=== PATIENT | male | born 1945 | race Caucasian/White ===

== ENCOUNTER 2017-02-28 14:24 | Emergency (ER) | payer MEDICARE, BC ==
[~2017-02-28] VITALS: Ht 177.8 cm; Wt 56.7 kg
[~2017-02-28 14:24] MED LIST: ACET325T53 PO; ASPI81TA31 PO; COMPOUND PAIN CREAM TP; DICL100G16 TP; DIVA250T4 PO; DULO30CA2 PO; LIDO700A TP; LOPE2CAP40 PO; MELO-107 PO; METO-302 PO; OLAN10TA3 PO; OLAN2.5T3 PO; SUVO10TA PO; TRAM50TA2 PO
[2017-02-28] MEDS ORDERED: predniSONE 20 MG TABLET PO ONE (15:00)
[2017-02-28] MEDS ORDERED: diphenhydrAMINE 50 MG CAPSULE PO ONE (15:00)
[2017-02-28] MEDS ORDERED: ASPI81TA31 PO (15:03)
[2017-02-28] MEDS ORDERED: CHOL500062 PO (15:03)
[2017-02-28] MEDS ORDERED: SYNTHROID 88 MCG TABLET PO (15:03)
[2017-02-28] MEDS ORDERED: [UNRECOGNIZED DRUG - REMARK] (15:03)
[2017-02-28] MEDS ORDERED: DULO60CA45 PO (15:03)
[2017-02-28] MEDS ORDERED: IV NORMAL SALINE 500 ML IV ONE (15:15)
[2017-02-28] MEDS ORDERED: predniSONE 20 MG TABLET ONE (15:22)
[2017-02-28] MEDS ORDERED: diphenhydrAMINE 50 MG CAPSULE ONE (15:23)
--- NOTE | 2017-02-28 16:13 | NUR ---
Patient is resting comfortably on gurney, calm and cooperative at this time.
--- NOTE | 2017-02-28 16:33 | NUR ---
Patient discharged to home in stable conditon. Written and verbal after care instructions given to patient and his conservator. Patient's conservator verbalizes understanding of instructions. Patient left ER with brisk steady gait.
== END 2017-02-28 16:38 | disposition home or self-care (01) ==
LOC: ER 14:24
DX: K08.89 Other specified disorders of teeth and supporting structures (principal); T36.0X5A Adverse effect of penicillins, initial encounter; F03.90 Unspecified dementia, unspecified severity, without behavioral disturbance, psychotic disturbance, mood disturbance, and anxiety; I10 Essential (primary) hypertension; I21.9 Acute myocardial infarction, unspecified; F31.9 Bipolar disorder, unspecified; F41.9 Anxiety disorder, unspecified; Z88.1 Allergy status to other antibiotic agents; F17.210 Nicotine dependence, cigarettes, uncomplicated; Z79.82 Long term (current) use of aspirin; Y92.098 Other place in other non-institutional residence as the place of occurrence of the external cause
CPT/HCPCS: A4663; J7040; J7512; Q0163

== ENCOUNTER 2020-06-04 20:52 | Inpatient (IN) | payer MEDICARE, BC ==
[~2020-06-04] VITALS: Ht 177.8 cm; Wt 65.0 kg
[2020-06-04 20:30] VITALS: BP 103/73
[~2020-06-04 20:52] MED LIST changes: -ACET325T53 PO; +CHOL500062 PO; -COMPOUND PAIN CREAM TP; -DICL100G16 TP; -DULO30CA2 PO; +DULO60CA45 PO; -LIDO700A TP; -LOPE2CAP40 PO; -METO-302 PO; -SUVO10TA PO; +SYNTHROID 88 MCG TABLET PO; -TRAM50TA2 PO; +[UNRECOGNIZED DRUG - REMARK]
[2020-06-04] MEDS ORDERED: ALBU18HF2 INH (21:47)
[2020-06-04] MEDS ORDERED: PANT40TA2 PO (21:47)
[2020-06-04] MEDS ORDERED: ENOX40DI SQ (21:47)
[2020-06-04] MEDS ORDERED: MIRT15TA3 PO (21:47)
[2020-06-04] MEDS ORDERED: GABA600T12 PO (21:47)
[2020-06-04] MEDS ORDERED: QUET100T PO (21:47)
[2020-06-04] MEDS ORDERED: DIVA-78 PO (21:47)
[2020-06-04] MEDS ORDERED: LACT1CAP57 PO (21:47)
[2020-06-04] MEDS ORDERED: GABA100C PO (21:47)
[2020-06-04] MEDS ORDERED: ACET325C7 PO (21:47)
[2020-06-04] MEDS ORDERED: LEVO75TA PO (21:47)
[2020-06-04] MEDS ORDERED: DULO60CA45 PO (21:47)
[2020-06-04] MEDS ORDERED: CYCL7.5T17 PO (21:47)
[2020-06-04] MEDS ORDERED: TRAZ150T75 PO (21:47)
[2020-06-04] MEDS ORDERED: ATOR20TA PO (21:47)
[2020-06-04] MEDS ORDERED: Z GUARD REMEDY PASTE 57 GM TUBE TOP PRN (22:00)
--- NOTE | 2020-06-04 22:00 | NUR ---
Admitted this 74y/o male from [facility] with diagnosis of PNA, acute hypoxic. Axox 2, clear speech able to make needs known. no acute distress noted. on 2L NC saturating @97%, no SOB noted. VSS. No complain of any pain or discomfort. Noted with left arm bruise, right hand bruising, lower left abdominal bruising and bilateral heel redness. Pictures take and placed in chart. Belongings list completed and placed in chart. Oriented pt to the unit, safety measure maintained, bed alarm on, bed locked and lowered, x2 rails. Assisted with needs promptly. Call light and frequently used items placed within patient's reach. Routine admission care done. Dr. Kristian Barrow and Dr. Fisher made aware of the admission. Will continue to monitor and will endorse accordingly.
[2020-06-04] MEDS ORDERED: CYCLOBENZAPRINE HCL 10 MG TABLET PO PRN (22:15)
[2020-06-04] MEDS ORDERED: TRAZODONE 100 MG TABLET PO PRN (22:15)
[2020-06-05 04:00] VITALS: BP 118/65
[2020-06-05] MEDS: LEVOTHYROXINE SODIUM 75 MCG TABLET PO SCH (06:15)
--- NOTE | 2020-06-05 06:50 | NUR ---
No significant events throughout the night. pt slept well. Needs attended too. Condom cath in place, draining clear yellow. Safety measures maintained, bed alarm on. Call light and all personal items within reach. Will endorse to oncoming nurse.
[2020-06-05] MEDS: ASPIRIN 81 MG TAB.CHEW PO SCH (09:20)
[2020-06-05] MEDS: DULOXETINE 60 MG CAPSULE.DR PO SCH (09:20)
[2020-06-05] MEDS: PANTOPRAZOLE SODIUM 40 MG TABLET.DR PO SCH (09:20)
[2020-06-05] MEDS: CULTURELLE CAPSULE PO SCH ×2 (09:20→17:05)
[2020-06-05] MEDS: MIRTAZAPINE 15 MG TABLET PO SCH (09:23)
[2020-06-05] MEDS: DIVALPROEX 500 MG TABLET.DR PO SCH ×3 (09:24→17:05)
[2020-06-05] MEDS: GABAPENTIN 300 MG CAPSULE PO SCH ×3 (09:24→17:05)
[2020-06-05] MEDS: QUETIAPINE FUMARATE 100 MG TABLET PO SCH ×4 (09:24→22:50)
[2020-06-05 09:37] VITALS: BP 155/90
[2020-06-05] MEDS: ENOXAPARIN SODIUM 40 MG/0.4 ML DISP.SYRIN SQ SCH (09:58)
[2020-06-05] MEDS ORDERED: TRAZODONE 100 MG TABLET PO PRN (14:15)
[2020-06-05] MEDS: ALBUTEROL SULFATE 2.5 MG/3 ML NEBU NEB SCH ×2 (14:26→19:27)
[2020-06-05 15:30] VITALS: BP 119/83
--- NOTE | 2020-06-05 16:24 | NUR ---
[facility] Note: SW spoke with the pts guardian, Connie ([phone]), and received collateral information regarding the pt. SW provided patient with the following caregiving resources: [facility]; ([phone]), [facility]; ([phone]), [facility]; ([phone]). group care worker will continue to remain available to patient and provide ongoing supportive counseling and assess for any psychosocial needs. group care worker will encourage patient to comply with ARU goals of care.
--- NOTE | 2020-06-05 19:30 | NUR ---
RECEIVED PT IN NO ACUTE DISTRESS. IV INTACT. PT ON NASAL CANNULA. SAFETY AND COMFORT PROVIDED. WILL CONTINUE TO MONITOR. Addendum: 06/06/20 at 0416 by CHARMAINE LEIJA RN WRONG PT.
--- NOTE | 2020-06-05 19:30 | NUR ---
RECEIVED PT IN NO ACUTE DISTRESS. PT ON NASAL CANNULA. PT ON CONDOM CATHETER INTACT AND DRAINING WELL.SAFETY AND COMFORT PROVIDED. WILL CONTINUE TO MONITOR.
[2020-06-05 20:00] VITALS: BP 101/68
[2020-06-05] MEDS: ATORVASTATIN 20 MG TABLET PO SCH (22:49)
[2020-06-06] MEDS: ALBUTEROL SULFATE 2.5 MG/3 ML NEBU NEB SCH ×4 (00:31→19:09)
[2020-06-06 04:00] VITALS: BP 119/83
--- NOTE | 2020-06-06 06:15 | NUR ---
PT SLEPT INTERMITTENTLY. PT IN NO ACUTE DISTRESS. PT CONDOM CATH INTACT AND DRAINING WELL. PT VITAL SIGNS WNL. PRESCRIBED MEDICATION GIVEN AND PT TOLERATED IT WELL. SAFETY AND COMFORT PROVIDED. ALL NEEDS ARE MET. WILL ENDORSE TO INCOMING NURSE FOR CONTINUITY OF CARE.
[2020-06-06] MEDS: LEVOTHYROXINE SODIUM 75 MCG TABLET PO SCH (06:31)
[2020-06-06 08:00] VITALS: BP 139/83
[2020-06-06] MEDS: ASPIRIN 81 MG TAB.CHEW PO SCH (08:50)
[2020-06-06] MEDS: CULTURELLE CAPSULE PO SCH ×2 (08:50→16:56)
[2020-06-06] MEDS: DULOXETINE 60 MG CAPSULE.DR PO SCH (08:51)
[2020-06-06] MEDS: DIVALPROEX 500 MG TABLET.DR PO SCH ×3 (08:51→16:54)
[2020-06-06] MEDS: PANTOPRAZOLE SODIUM 40 MG TABLET.DR PO SCH (08:52)
[2020-06-06] MEDS: QUETIAPINE FUMARATE 100 MG TABLET PO SCH ×4 (08:53→20:26)
[2020-06-06] MEDS: GABAPENTIN 300 MG CAPSULE PO SCH ×3 (08:57→16:56)
[2020-06-06] MEDS: MIRTAZAPINE 15 MG TABLET PO SCH (08:57)
[2020-06-06] MEDS: ENOXAPARIN SODIUM 40 MG/0.4 ML DISP.SYRIN SQ SCH (08:58)
[2020-06-06 15:23] VITALS: BP 133/90
[2020-06-06] MEDS: ENSURE ENLIVE (VAN) 240 ML LIQUID PO SCH (17:52)
--- NOTE | 2020-06-06 18:30 | NUR ---
Patient remains alert, oriented x 2, not in any form of distress on 2LPM via nasal cannula. He denies any pain or discomfort on room air. Condom catheter in place draining clear yellow urine. Needs attended to promptly. Call light and frequently used items placed within patient's reach. Safety measures maintained. Will endorse accordingly.
[2020-06-06 20:00] VITALS: BP 108/66
[2020-06-06] MEDS: ATORVASTATIN 20 MG TABLET PO SCH (20:26)
--- NOTE | 2020-06-06 23:54 | NUR ---
Awake alert and oriented x2-3 needs attended. VSS. Tolerated po meds well. No acute distress noted. Will monitor patient.On continous O2@ 2L via nasal cannula pulse ox 97% Kept comfortable.
[2020-06-07] MEDS: ALBUTEROL SULFATE 2.5 MG/3 ML NEBU NEB SCH ×4 (00:36→19:30)
[2020-06-07 04:00] VITALS: BP 112/63
[2020-06-07] MEDS: LEVOTHYROXINE SODIUM 75 MCG TABLET PO SCH (06:44)
[2020-06-07] MEDS: PANTOPRAZOLE SODIUM 40 MG TABLET.DR PO SCH (08:12)
[2020-06-07] MEDS: DIVALPROEX 500 MG TABLET.DR PO SCH ×3 (08:12→16:01)
[2020-06-07] MEDS: QUETIAPINE FUMARATE 100 MG TABLET PO SCH ×4 (08:12→20:48)
[2020-06-07] MEDS: CULTURELLE CAPSULE PO SCH ×2 (08:12→16:01)
[2020-06-07] MEDS: MIRTAZAPINE 15 MG TABLET PO SCH (08:12)
[2020-06-07] MEDS: ASPIRIN 81 MG TAB.CHEW PO SCH (08:12)
[2020-06-07] MEDS: GABAPENTIN 300 MG CAPSULE PO SCH ×3 (08:12→16:01)
[2020-06-07] MEDS: DULOXETINE 60 MG CAPSULE.DR PO SCH (08:12)
[2020-06-07] MEDS: ENOXAPARIN SODIUM 40 MG/0.4 ML DISP.SYRIN SQ SCH (08:13)
[2020-06-07] MEDS: ENSURE ENLIVE (VAN) 240 ML LIQUID PO SCH ×2 (08:13→16:02)
[2020-06-07 08:40] VITALS: BP 106/70
--- NOTE | 2020-06-07 13:49 | NUR ---
INDIVIDUALIZED PLAN OF CARE
--- NOTE | 2020-06-07 14:44 | NUR ---
INTERDISCIPLINARY TEAM CONFERENCE
[2020-06-07 15:13] VITALS: BP 104/62
[2020-06-07 20:31] VITALS: BP 105/62
[2020-06-07] MEDS: ATORVASTATIN 20 MG TABLET PO SCH (20:48)
--- NOTE | 2020-06-07 22:00 | NUR ---
received lying in bed watching TV. No acute distress noted, no SOB noted on 2L NC saturating @ 97%. Denies any pain or discomfort. VSS. All due medication administered and tolerated well. Pt is calm and cooperative, makes needs known. All needs attended too. Condom cath intact and draining ernesto yellow. Safety measure maintained. Will continue to monitor through the night..
[2020-06-08] MEDS: ALBUTEROL SULFATE 2.5 MG/3 ML NEBU NEB SCH ×4 (02:20→19:52)
[2020-06-08 04:00] VITALS: BP 101/52
[2020-06-08] MEDS: LEVOTHYROXINE SODIUM 75 MCG TABLET PO SCH (06:42)
--- NOTE | 2020-06-08 07:00 | NUR ---
received in bed sleeping vs are stable call light with in reach
[2020-06-08 07:02] LABS: BASOPHILS % (AUTO) 0.8 % (0.0-2.0); EOSINOPHILS # (AUTO) 0.1 K/uL (0.0-0.7); EOSINOPHILS % (AUTO) 3.3 % (0.0-7.0); HEMATOCRIT 29.5 % (36.7-47.1); HEMOGLOBIN 10.6 g/dL (12.5-16.3); LYMPHOCYTES # (AUTO) 1.7 K/uL (20.0-40.0); MEAN CORPUSCULAR HEMOGLOBIN 36.2 uug (23.8-33.4); MEAN CORPUSCULAR HGB CONC 36 g/dL (32.5-36.3); MEAN CORPUSCULAR VOLUME 100.5 fL (73.0-96.2); MONOCYTES # (AUTO) 0.5 K/uL (2.0-10.0); MONOCYTES % (AUTO) 12.2 % (0.0-11.0); NEUTROPHILS # (AUTO) 1.5 K/uL (1.8-8.9); NEUTROPHILS % (AUTO) 39.7 % (38.5-71.5); PLATELET COUNT (AUTO) 155 K/uL (152-348); RED BLOOD CELL COUNT(AUTO) 2.93 MIL/uL (4.06-5.63); WHITE BLOOD COUNT (AUTO) 3.9 K/uL (3.6-10.2)
[2020-06-08 07:18] LABS: CREATININE 0.7 mg/dL (0.6-1.3); MAGNESIUM 1.5 mg/dL (1.8-2.4); PHOSPHOROUS 3.8 mg/dL (2.5-4.9); POTASSIUM 3.6 mmol/L (3.5-5.1)
[2020-06-08 08:00] VITALS: BP 165/72
[2020-06-08] MEDS: DIVALPROEX 500 MG TABLET.DR PO SCH ×3 (08:11→16:40)
[2020-06-08] MEDS: CULTURELLE CAPSULE PO SCH ×2 (08:11→16:40)
[2020-06-08] MEDS: PANTOPRAZOLE SODIUM 40 MG TABLET.DR PO SCH (08:11)
[2020-06-08] MEDS: GABAPENTIN 300 MG CAPSULE PO SCH ×3 (08:11→16:40)
[2020-06-08] MEDS: DULOXETINE 60 MG CAPSULE.DR PO SCH (08:11)
[2020-06-08] MEDS: ASPIRIN 81 MG TAB.CHEW PO SCH (08:11)
[2020-06-08] MEDS: QUETIAPINE FUMARATE 100 MG TABLET PO SCH ×4 (08:11→20:42)
[2020-06-08] MEDS: MIRTAZAPINE 15 MG TABLET PO SCH (08:11)
[2020-06-08] MEDS: ENSURE ENLIVE (VAN) 240 ML LIQUID PO SCH ×2 (08:11→16:40)
[2020-06-08] MEDS: ENOXAPARIN SODIUM 40 MG/0.4 ML DISP.SYRIN SQ SCH (08:12)
--- NOTE | 2020-06-08 08:45 | NUR ---
pt is yelling screaming and saying he did not sign any thing to be here reorient the pt ,pt still cursing on the nurses
[2020-06-08] MEDS ORDERED: MAGNESIUM OXIDE 400 MG TABLET PO ONE (09:30)
[2020-06-08 15:27] VITALS: BP 106/73
[2020-06-08 20:37] VITALS: BP 110/63
[2020-06-08] MEDS: ATORVASTATIN 20 MG TABLET PO SCH (20:42)
[2020-06-09] MEDS: ALBUTEROL SULFATE 2.5 MG/3 ML NEBU NEB SCH ×5 (01:00→19:00)
[2020-06-09 05:10] VITALS: BP 115/64
[2020-06-09] MEDS: LEVOTHYROXINE SODIUM 75 MCG TABLET PO SCH (06:06)
--- NOTE | 2020-06-09 06:44 | NUR ---
received lying in bed watching TV. No acute distress noted, no SOB noted on 2L NC saturating @ 97%. Pt reomved NC saturating @ 95-97% RA. Denies any pain or discomfort. VSS. All due medication administered and tolerated well. Pt is calm and cooperative, makes needs known. All needs attended too. Condom cath leaking, removed. Kept clean, dry and comfortable. Safety measure maintained. Will continue plan of care.
--- NOTE | 2020-06-09 07:40 | NUR ---
PT STATES HE DOES NOT WANT TO BE HERE. PT REFUSED INHALATION TX. NO S/S OF RESPIRATORY DISTRESS NOTED AT THIS TIME.
[2020-06-09 07:44] VITALS: BP 133/76
[2020-06-09] MEDS: CULTURELLE CAPSULE PO SCH ×2 (09:22→17:29)
[2020-06-09] MEDS: QUETIAPINE FUMARATE 100 MG TABLET PO SCH ×4 (09:22→20:31)
[2020-06-09] MEDS: ASPIRIN 81 MG TAB.CHEW PO SCH (09:22)
[2020-06-09] MEDS: MIRTAZAPINE 15 MG TABLET PO SCH (09:23)
[2020-06-09] MEDS: DIVALPROEX 500 MG TABLET.DR PO SCH ×3 (09:26→17:29)
[2020-06-09] MEDS: PANTOPRAZOLE SODIUM 40 MG TABLET.DR PO SCH (09:26)
[2020-06-09] MEDS: GABAPENTIN 300 MG CAPSULE PO SCH ×3 (09:26→17:30)
[2020-06-09] MEDS: ENSURE ENLIVE (VAN) 240 ML LIQUID PO SCH ×2 (09:28→17:30)
[2020-06-09] MEDS: ENOXAPARIN SODIUM 40 MG/0.4 ML DISP.SYRIN SQ SCH (09:28)
[2020-06-09 14:55] VITALS: BP 117/72
[2020-06-09] MEDS: LORAZEPAM 1 MG TABLET PO PRN (17:36)
[2020-06-09 20:00] VITALS: BP 126/66
--- NOTE | 2020-06-09 20:00 | NUR ---
Awake, watching TV. Denies any pain/discomforts at this time. Safety measures and fall prevention maintained.
[2020-06-09] MEDS: ATORVASTATIN 20 MG TABLET PO SCH (20:32)
[2020-06-10] MEDS: ALBUTEROL SULFATE 2.5 MG/3 ML NEBU NEB SCH ×5 (00:32→19:23)
[2020-06-10 04:00] VITALS: BP 124/78
[2020-06-10] MEDS: LEVOTHYROXINE SODIUM 75 MCG TABLET PO SCH (06:20)
[2020-06-10 06:59] LABS: BASOPHILS % (AUTO) 0.5 % (0.0-2.0); EOSINOPHILS # (AUTO) 0.1 K/uL (0.0-0.7); EOSINOPHILS % (AUTO) 2.8 % (0.0-7.0); HEMATOCRIT 29.9 % (36.7-47.1); HEMOGLOBIN 10.8 g/dL (12.5-16.3); LYMPHOCYTES # (AUTO) 1.3 K/uL (20.0-40.0); LYMPHOCYTES % (AUTO) 39.7 % (20.5-51.5); MEAN CORPUSCULAR HEMOGLOBIN 36.7 uug (23.8-33.4); MEAN CORPUSCULAR HGB CONC 36 g/dL (32.5-36.3); MONOCYTES # (AUTO) 0.4 K/uL (2.0-10.0); MONOCYTES % (AUTO) 12.7 % (0.0-11.0); NEUTROPHILS # (AUTO) 1.5 K/uL (1.8-8.9); NEUTROPHILS % (AUTO) 44.3 % (38.5-71.5); PLATELET COUNT (AUTO) 141 K/uL (152-348); RED BLOOD CELL COUNT(AUTO) 2.93 MIL/uL (4.06-5.63); WHITE BLOOD COUNT (AUTO) 3.3 K/uL (3.6-10.2)
[2020-06-10 07:27] LABS: BILIRUBIN,TOTAL 0.4 mg/dL (0.2-1.0); CREATININE 0.9 mg/dL (0.6-1.3); MAGNESIUM 1.5 mg/dL (1.8-2.4); POTASSIUM 3.7 mmol/L (3.5-5.1); TOTAL PROTEIN, SERUM 6.1 g/dL (6.4-8.2)
[2020-06-10 08:10] VITALS: BP 129/66
[2020-06-10] MEDS: CULTURELLE CAPSULE PO SCH ×2 (08:27→16:25)
[2020-06-10] MEDS: MIRTAZAPINE 15 MG TABLET PO SCH (08:27)
[2020-06-10] MEDS: PANTOPRAZOLE SODIUM 40 MG TABLET.DR PO SCH (08:27)
[2020-06-10] MEDS: ASPIRIN 81 MG TAB.CHEW PO SCH (08:27)
[2020-06-10] MEDS: QUETIAPINE FUMARATE 100 MG TABLET PO SCH ×4 (08:27→20:48)
[2020-06-10] MEDS: LORAZEPAM 1 MG TABLET PO PRN ×2 (08:27→16:23)
[2020-06-10] MEDS: DIVALPROEX 500 MG TABLET.DR PO SCH ×3 (08:27→16:25)
[2020-06-10] MEDS: GABAPENTIN 300 MG CAPSULE PO SCH ×3 (08:31→16:26)
[2020-06-10] MEDS: ENOXAPARIN SODIUM 40 MG/0.4 ML DISP.SYRIN SQ SCH (09:00)
[2020-06-10] MEDS: ENSURE ENLIVE (VAN) 240 ML LIQUID PO SCH ×2 (09:10→16:26)
[2020-06-10] MEDS: MAGNESIUM SULFATE/D5W 100 ML IV SCH ×3 (09:30→13:18)
[2020-06-10] MEDS ORDERED: MAGNESIUM OXIDE 400 MG TABLET PO ONE (13:30)
[2020-06-10 15:10] VITALS: BP 119/70
[2020-06-10 20:17] VITALS: BP 123/70
[2020-06-10] MEDS: ATORVASTATIN 20 MG TABLET PO SCH (20:48)
[2020-06-11] MEDS: ALBUTEROL SULFATE 2.5 MG/3 ML NEBU NEB SCH ×4 (01:30→19:57)
[2020-06-11 04:00] VITALS: BP 107/71
[2020-06-11] MEDS: LEVOTHYROXINE SODIUM 75 MCG TABLET PO SCH (06:18)
[2020-06-11 06:48] LABS: BASOPHILS % (AUTO) 1.5 % (0.0-2.0); EOSINOPHILS # (AUTO) 0.1 K/uL (0.0-0.7); EOSINOPHILS % (AUTO) 3.3 % (0.0-7.0); HEMATOCRIT 30.9 % (36.7-47.1); HEMOGLOBIN 10.9 g/dL (12.5-16.3); LYMPHOCYTES # (AUTO) 1.5 K/uL (20.0-40.0); LYMPHOCYTES % (AUTO) 44.9 % (20.5-51.5); MEAN CORPUSCULAR HEMOGLOBIN 36.4 uug (23.8-33.4); MEAN CORPUSCULAR HGB CONC 35 g/dL (32.5-36.3); MEAN CORPUSCULAR VOLUME 103.2 fL (73.0-96.2); MONOCYTES # (AUTO) 0.4 K/uL (2.0-10.0); MONOCYTES % (AUTO) 13.2 % (0.0-11.0); NEUTROPHILS # (AUTO) 1.2 K/uL (1.8-8.9); NEUTROPHILS % (AUTO) 37.1 % (38.5-71.5); PLATELET COUNT (AUTO) 147 K/uL (152-348); RED BLOOD CELL COUNT(AUTO) 2.99 MIL/uL (4.06-5.63); WHITE BLOOD COUNT (AUTO) 3.3 K/uL (3.6-10.2)
[2020-06-11 07:25] LABS: THYROID STIMULATING HORMONE 13.013 mIU/mL (0.358-3.740)
--- NOTE | 2020-06-11 07:45 | NUR ---
Received pt in bed, awake, able to make needs known. Denies pain/discomfort. Per RT Ke, pt refused breathing tx, no SOB or respiratory distress noted. O2 saturation 96% on 2L NC. Bed low and in locked position, bed alarm on, safety measures and fall precautions in place. Call light within reach. Will continue to monitor.
[2020-06-11 08:00] VITALS: BP 130/79
[2020-06-11 08:01] LABS: CREATININE 0.9 mg/dL (0.6-1.3); MAGNESIUM 1.5 mg/dL (1.8-2.4); PHOSPHOROUS 3.7 mg/dL (2.5-4.9); POTASSIUM 3.7 mmol/L (3.5-5.1); URIC ACID 4.7 mg/dL (3.5-7.2)
[2020-06-11] MEDS: ENOXAPARIN SODIUM 40 MG/0.4 ML DISP.SYRIN SQ SCH (10:20)
[2020-06-11] MEDS: ASPIRIN 81 MG TAB.CHEW PO SCH (10:22)
[2020-06-11] MEDS: ENSURE ENLIVE (VAN) 240 ML LIQUID PO SCH ×2 (10:22→17:58)
[2020-06-11] MEDS: DIVALPROEX 500 MG TABLET.DR PO SCH ×3 (10:22→17:57)
[2020-06-11] MEDS: CULTURELLE CAPSULE PO SCH ×2 (10:22→17:57)
--- NOTE | 2020-06-11 10:22 | NUR ---
Kenyatta held, plt count 147. Dr. Jake MD, aware.
[2020-06-11] MEDS: MIRTAZAPINE 15 MG TABLET PO SCH (10:23)
[2020-06-11] MEDS: PANTOPRAZOLE SODIUM 40 MG TABLET.DR PO SCH (10:23)
[2020-06-11] MEDS: QUETIAPINE FUMARATE 100 MG TABLET PO SCH ×4 (10:23→20:35)
[2020-06-11] MEDS: GABAPENTIN 300 MG CAPSULE PO SCH ×3 (10:24→17:57)
[2020-06-11] MEDS: CYCLOBENZAPRINE HCL 10 MG TABLET PO PRN (10:24)
[2020-06-11 12:00] VITALS: BP 111/74
[2020-06-11] MEDS: MAGNESIUM SULFATE/D5W 100 ML IV SCH ×2 (12:26→13:19)
[2020-06-11 16:00] VITALS: BP 108/73
--- NOTE | 2020-06-11 19:30 | NUR ---
EOSS: Pt in bed, awake, A&Ox2. On 2 LPM via NC, no s/s of acute distress, no SOB. No complaints of pain/discomfort at this time. Pt able to make needs known throughout shift, needs met promptly. Medications and care administered per order, no a/r noted. L FA 22 g peripheral IV started for medication administration per order, remains patent and intact. Pt refused PT today, per patient he does not like the exercises they do. Explained to pt benefits of PT, continued to refuse. Safety measures and fall precautions in place. Call light within reach. 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
[2020-06-11 20:00] VITALS: BP 125/70
[2020-06-11] MEDS: ATORVASTATIN 20 MG TABLET PO SCH (20:35)
[2020-06-12] MEDS: ALBUTEROL SULFATE 2.5 MG/3 ML NEBU NEB SCH ×4 (01:25→20:04)
[2020-06-12 04:00] VITALS: BP 119/63
--- NOTE | 2020-06-12 04:18 | NUR ---
Received pt at the beginning of shift resting in bed. AAO x2. On 2L O2 via NC. No acute distress noted. All needs attended to promptly. Safety measures maintained. Call light and personal items within reach. Will continue to monitor.
[2020-06-12] MEDS: LEVOTHYROXINE SODIUM 100 MCG TABLET PO SCH (06:24)
[2020-06-12 07:27] LABS: CREATININE 0.9 mg/dL (0.6-1.3); MAGNESIUM 1.8 mg/dL (1.8-2.4); POTASSIUM 3.8 mmol/L (3.5-5.1)
--- NOTE | 2020-06-12 07:40 | NUR ---
Pt received in bed resting. A&O x 2. pt is on 2L O2 NC. no acute distress noted, no complaints as of right now. pt can express needs, fall precautions will continue to monitor. Safety measures in place, call light in reach.
[2020-06-12 08:00] VITALS: BP 111/71
[2020-06-12] MEDS: ENSURE ENLIVE (VAN) 240 ML LIQUID PO SCH ×2 (08:15→17:08)
[2020-06-12] MEDS: MIRTAZAPINE 15 MG TABLET PO SCH (09:00)
[2020-06-12] MEDS: ENOXAPARIN SODIUM 40 MG/0.4 ML DISP.SYRIN SQ SCH (09:00)
[2020-06-12] MEDS: DIVALPROEX 500 MG TABLET.DR PO SCH ×3 (09:00→16:41)
[2020-06-12] MEDS: GABAPENTIN 300 MG CAPSULE PO SCH ×3 (09:01→16:41)
[2020-06-12] MEDS: CULTURELLE CAPSULE PO SCH ×2 (09:01→16:41)
[2020-06-12] MEDS: QUETIAPINE FUMARATE 100 MG TABLET PO SCH ×4 (09:01→20:04)
[2020-06-12] MEDS: PANTOPRAZOLE SODIUM 40 MG TABLET.DR PO SCH (09:02)
[2020-06-12] MEDS: ASPIRIN 81 MG TAB.CHEW PO SCH (09:04)
[2020-06-12 16:00] VITALS: BP 94/61
--- NOTE | 2020-06-12 18:48 | NUR ---
End report. Pt is in bed with safety precautions in place, Pt is on 2L NC and satting well. No acute distress noted, no complaints. Pt was slightly agitated throughout shift but is now laying in bed comfortable. pt has a RFA IV 22g flushes well. All needs met through shift.
[2020-06-12] MEDS: ATORVASTATIN 20 MG TABLET PO SCH (20:04)
--- NOTE | 2020-06-12 20:21 | NUR ---
Received pt trying to get out of bed. Reoriented pt to room and repositioned comfortably. Axox2, no acute distress noted. VSS on 2LNC saturating @ 95%., NO SOB noted. Denies any pain or discomfort. All due medication administered, tolerated well, swallows pills whole. Snacks provided. Safety measures and fall precautions in place. Bed alarm on. Call light and all personal items within reach. will monitor throughout the night.
[2020-06-12 20:25] VITALS: BP 104/69
[2020-06-13] MEDS: ALBUTEROL SULFATE 2.5 MG/3 ML NEBU NEB SCH ×4 (01:30→19:43)
[2020-06-13 04:53] VITALS: BP 101/64
[2020-06-13] MEDS: LEVOTHYROXINE SODIUM 100 MCG TABLET PO SCH (06:07)
[2020-06-13 07:30] VITALS: BP 118/63
[2020-06-13] MEDS: ASPIRIN 81 MG TAB.CHEW PO SCH (08:24)
[2020-06-13] MEDS: CULTURELLE CAPSULE PO SCH ×2 (08:25→16:45)
[2020-06-13] MEDS: DIVALPROEX 500 MG TABLET.DR PO SCH ×3 (08:25→16:46)
[2020-06-13] MEDS: PANTOPRAZOLE SODIUM 40 MG TABLET.DR PO SCH (08:26)
[2020-06-13] MEDS: GABAPENTIN 300 MG CAPSULE PO SCH ×3 (08:26→16:45)
[2020-06-13] MEDS: QUETIAPINE FUMARATE 100 MG TABLET PO SCH ×4 (08:27→20:21)
[2020-06-13] MEDS: MIRTAZAPINE 15 MG TABLET PO SCH (08:27)
[2020-06-13] MEDS: ENOXAPARIN SODIUM 40 MG/0.4 ML DISP.SYRIN SQ SCH (08:28)
[2020-06-13] MEDS: ENSURE ENLIVE (VAN) 240 ML LIQUID PO SCH ×2 (08:30→16:48)
--- NOTE | 2020-06-13 09:40 | NUR ---
[facility] Ref[facility]: [facility] faxed patient's referral packet for possible placement to [facility] (P:[phone] F: [phone]). [facility] also faxed referral packet to [facility] at [facility] ([phone] [phone]). Addendum: 06/13/20 at 1017 by HAYLEY GALEAS Patient is accepted at two facilities. [facility] [address] [place] [address] [phone] [employer] [employer] [phone] [facility] [address] [place] [address] [phone] [employer] [phone]
[2020-06-13 15:09] VITALS: BP 93/60
--- NOTE | 2020-06-13 18:32 | NUR ---
no changes noted during shift, kept comfortable, clean, needs attended timely
--- NOTE | 2020-06-13 19:30 | NUR ---
Pt received in bed, resting. On 2L NC sating at 97%. Denies pain at this time. No distress noted. Bed is locked and in the lowest position, bed alarm is on. Call light is within reach, call light use teaching reinforced. No other issues or concerns at this time.
[2020-06-13 20:05] VITALS: BP 105/61
[2020-06-13] MEDS: ATORVASTATIN 20 MG TABLET PO SCH (20:21)
[2020-06-14] MEDS: ALBUTEROL SULFATE 2.5 MG/3 ML NEBU NEB SCH ×4 (01:30→19:30)
[2020-06-14] MEDS: LEVOTHYROXINE SODIUM 100 MCG TABLET PO SCH (06:46)
[2020-06-14 08:00] VITALS: BP 118/66
[2020-06-14] MEDS: QUETIAPINE FUMARATE 100 MG TABLET PO SCH ×4 (08:52→20:27)
[2020-06-14] MEDS: CULTURELLE CAPSULE PO SCH ×2 (08:52→17:52)
[2020-06-14] MEDS: PANTOPRAZOLE SODIUM 40 MG TABLET.DR PO SCH (08:52)
[2020-06-14] MEDS: GABAPENTIN 300 MG CAPSULE PO SCH ×3 (08:52→17:51)
[2020-06-14] MEDS: DIVALPROEX 500 MG TABLET.DR PO SCH ×3 (08:52→17:52)
[2020-06-14] MEDS: MIRTAZAPINE 15 MG TABLET PO SCH (08:52)
[2020-06-14] MEDS: ENSURE ENLIVE (VAN) 240 ML LIQUID PO SCH ×2 (09:06→17:52)
[2020-06-14] MEDS: ASPIRIN 81 MG TAB.CHEW PO SCH (09:06)
[2020-06-14] MEDS: ENOXAPARIN SODIUM 40 MG/0.4 ML DISP.SYRIN SQ SCH (09:06)
[2020-06-14] MEDS: LORAZEPAM 1 MG TABLET PO PRN ×2 (10:40→21:01)
[2020-06-14 16:00] VITALS: BP 111/64
--- NOTE | 2020-06-14 16:04 | NUR ---
INTERDISCIPLINARY TEAM CONFERENCE
[2020-06-14 20:00] VITALS: BP 129/74
[2020-06-14] MEDS: ATORVASTATIN 20 MG TABLET PO SCH (20:27)
[2020-06-14] MEDS: CYCLOBENZAPRINE HCL 10 MG TABLET PO PRN (22:57)
[2020-06-15] MEDS: ALBUTEROL SULFATE 2.5 MG/3 ML NEBU NEB SCH ×4 (00:30→20:39)
--- NOTE | 2020-06-15 00:37 | NUR ---
AAOx1. Confused and disoriented. Compliant with meds. Patient very confused and yelling for his . Ativan given for agitation. Incontinent of urine and BM x2.Kept clean and dry. Will monitor patient. Fall precautions maintained. Siderails up for safety.
[2020-06-15 04:00] VITALS: BP 122/75
[2020-06-15] MEDS: LEVOTHYROXINE SODIUM 100 MCG TABLET PO SCH (06:32)
--- NOTE | 2020-06-15 06:55 | NUR ---
End of shift notes: Patient slept well. No distress noted. Incontinent of urine and BM. Kept clean and dry. No signs of agitation or restlessness noted. Remain confused.
--- NOTE | 2020-06-15 07:37 | NUR ---
Received PT in bed, awake AO X 2-3. Forgetful at times, but easy to redirect. Patient is cooperative and pleasant. PT stated they had a good night sleep. No acute distress or SOB noted. All pertinent information given during report. No complain noted at this time. Continue plan of care. Safety measures provided, call light within reach, bed low and lock. Will continue to monitor.
[2020-06-15 08:00] VITALS: BP 124/82
[2020-06-15] MEDS: MIRTAZAPINE 15 MG TABLET PO SCH (08:11)
[2020-06-15] MEDS: QUETIAPINE FUMARATE 100 MG TABLET PO SCH ×4 (08:12→20:53)
[2020-06-15] MEDS: ASPIRIN 81 MG TAB.CHEW PO SCH (08:12)
[2020-06-15] MEDS: PANTOPRAZOLE SODIUM 40 MG TABLET.DR PO SCH (08:12)
[2020-06-15] MEDS: CULTURELLE CAPSULE PO SCH ×2 (08:12→16:59)
[2020-06-15] MEDS: GABAPENTIN 300 MG CAPSULE PO SCH ×3 (08:12→16:59)
[2020-06-15] MEDS: ENSURE ENLIVE (VAN) 240 ML LIQUID PO SCH ×2 (08:12→17:00)
[2020-06-15] MEDS: DIVALPROEX 500 MG TABLET.DR PO SCH ×3 (08:12→16:59)
[2020-06-15] MEDS: ENOXAPARIN SODIUM 40 MG/0.4 ML DISP.SYRIN SQ SCH (08:14)
[2020-06-15] MEDS: CYCLOBENZAPRINE HCL 10 MG TABLET PO PRN ×2 (12:33→20:53)
[2020-06-15 14:47] VITALS: BP 116/74
--- NOTE | 2020-06-15 18:21 | NUR ---
PT in bed, awake AO X 2-3. Forgetful at times, but easy to redirect. Patient is cooperative and pleasant. No acute distress or SOB noted. No complain noted at this time. PT participated in all assigned therapy and tolerated it well. PT stated that he feels good and is happy. Continue plan of care. Safety measures provided, call light within reach, bed low and lock. Will endorse to stitching machine setter nurse.
[2020-06-15 20:12] VITALS: BP 136/96
[2020-06-15] MEDS: ATORVASTATIN 20 MG TABLET PO SCH (20:53)
--- NOTE | 2020-06-15 22:02 | NUR ---
Awake alert and oriented x1-2 Confused and disoriented. Needs attended.compliant with meds. Incontinent of bowel and bladder. Kept clean and dry. No signs of agitation or restlessness. Patient cooperative. fall precautions maintained. Will monitor patient.VSS.
[2020-06-16] MEDS: ALBUTEROL SULFATE 2.5 MG/3 ML NEBU NEB SCH ×3 (01:28→14:30)
[2020-06-16 04:12] VITALS: BP 94/51
[2020-06-16] MEDS: LEVOTHYROXINE SODIUM 100 MCG TABLET PO SCH (06:16)
--- NOTE | 2020-06-16 07:32 | NUR ---
Received PT in bed, awake AO X 2-3. Forgetful at times, but easy to redirect. Patient is cooperative and pleasant. PT stated they slept well last night. No acute distress or SOB noted. All pertinent information given during report. No complain noted at this time. Continue plan of care. Safety measures provided, call light within reach, bed low and lock. Will continue to monitor.
[2020-06-16] MEDS: GABAPENTIN 300 MG CAPSULE PO SCH ×2 (08:16→12:07)
[2020-06-16] MEDS: PANTOPRAZOLE SODIUM 40 MG TABLET.DR PO SCH (08:16)
[2020-06-16] MEDS: MIRTAZAPINE 15 MG TABLET PO SCH (08:16)
[2020-06-16] MEDS: DIVALPROEX 500 MG TABLET.DR PO SCH ×2 (08:16→12:07)
[2020-06-16] MEDS: QUETIAPINE FUMARATE 100 MG TABLET PO SCH ×2 (08:16→12:07)
[2020-06-16] MEDS: CULTURELLE CAPSULE PO SCH (08:17)
[2020-06-16] MEDS: ENSURE ENLIVE (VAN) 240 ML LIQUID PO SCH (08:17)
[2020-06-16] MEDS: ASPIRIN 81 MG TAB.CHEW PO SCH (08:17)
[2020-06-16] MEDS: ENOXAPARIN SODIUM 40 MG/0.4 ML DISP.SYRIN SQ SCH (08:18)
[2020-06-16 12:00] VITALS: BP 111/83
--- NOTE | 2020-06-16 15:11 | NUR ---
1330: Gave report given to Melo at [facility]. 1511: [facility] ambulance arrived. PT ambulated with 1 person assist and left via gurney. PT is happy and cooperative. Thankful to staff. Vitals documented. No acute distress or SOB noted. No complain of pain noted at this time. IV access removed. No bleeding, swelling or redness noted at IV site. Safety measures were provided on gurney. PT left unit happy. PT is discharge
== END 2020-06-16 13:10 | DRG 193 ==
PROVIDERS: ADMIT Physical Medicine & Rehabilitation Pain Medicine; ATTEND Physical Medicine & Rehabilitation Pain Medicine
DX: J18.9 Pneumonia, unspecified organism (principal); G92 Toxic encephalopathy; E43 Unspecified severe protein-calorie malnutrition; J96.01 Acute respiratory failure with hypoxia; J96.02 Acute respiratory failure with hypercapnia; J44.0 Chronic obstructive pulmonary disease with (acute) lower respiratory infection; E22.2 Syndrome of inappropriate secretion of antidiuretic hormone; D68.59 Other primary thrombophilia; I50.32 Chronic diastolic (congestive) heart failure; I10 Essential (primary) hypertension; R29.6 Repeated falls; Z88.1 Allergy status to other antibiotic agents; D53.9 Nutritional anemia, unspecified; E03.9 Hypothyroidism, unspecified; E78.5 Hyperlipidemia, unspecified; F01.50 Vascular dementia, unspecified severity, without behavioral disturbance, psychotic disturbance, mood disturbance, and anxiety; F25.0 Schizoaffective disorder, bipolar type; G89.29 Other chronic pain; I11.0 Hypertensive heart disease with heart failure; K21.9 Gastro-esophageal reflux disease without esophagitis; M41.9 Scoliosis, unspecified; Z79.890 Hormone replacement therapy; Z87.891 Personal history of nicotine dependence; Z20.822 Contact with and (suspected) exposure to COVID-19; Z91.81 History of falling; M54.9 Dorsalgia, unspecified; G62.9 Polyneuropathy, unspecified; G25.2 Other specified forms of tremor; Z72.89 Other problems related to lifestyle; F19.90 Other psychoactive substance use, unspecified, uncomplicated; F12.90 Cannabis use, unspecified, uncomplicated
CPT/HCPCS: 36415; 80164; 82652; 83735; 84100; 84443; 84550; 85025; 93005; 94640; 94664; J1650; J3475; J7050